=== PATIENT | female | born 1965 | race Caucasian/White ===

== ENCOUNTER 2018-11-22 07:02 | Emergency (ER) | payer BC, SELFPAY ==
[2018-11-22 07:09] VITALS: BP 214/90; PULSE 78; RESP 18; TEMP 36.4; O2SAT 98
--- NOTE | 2018-11-22 07:14 | ED.GENADUL_ITS ---
Discharge Plan Disposition Patient Disposition: HOME Condition: Stable Discharge Details Chief Complaint: Cellulitis Clinical Impression: Cellulitis of leg, right Primary Care Provider: Elkin Corrales ED Provider: Driss Perez Home Meds and New Rx's Prescriptions: New cephalexin 500 mg tablet 500 mg PO TID Qty: 21 RF: 0 No Action cephalexin 500 MG capsule 500 mg PO QID Qty: 40 RF: 0 Discharge Instructions Instructions: Cellulitis (ED) Additional Instructions: if the redness spreads up the leg, you have severe pain or fevers return to the emergency department follow up with your primary care provider in 1 week if not improving. You should also have your blood pressure rechecked in 1-2 weeks as well as it was elevated here. If you develop chest pain, severe headaches or difficulty breathing return to the emergency department Medical Decision Making Patient who denies chronic medical problems comes in with redness on lower posterior right leg. States she had some mosquito bites then the area became red. Denies fevers or severe pain and leg is not more swollen than normal or compared to the other leg. Has a 2x3cm area of erythema that is warm to touch and not tender and has no crepitus. Has full rom of the ankle and knee. Could be dermatitis but will tx as cellulitis and advised to f/u with pcp if not better and return precautions given. Pt also instructed to have BP rechecked with pcp in 1-2 weeks, has no symptoms of chest pain or sob so do not feel lab work or imaging indicated, she states it is normally elevated in provider's offices. Differential Diagnosis cellulitis, dermatitis HPI General Mode of arrival: ambulatory . Date/Time Provider Initiated Documentation: 11/22/18 07:08 . Limitations to Documentation: no limitations . Information obtained by: patient . History of Present Illness 53 year old F presents to the emergency department with the chief complaint of right leg redness, described as moderate, Quality is described as burning, Patient started experiencing this day(s) (1) and it has been constant. No relieving factors improve symptom(s), No exacerbating factors reported . Patient notes no other symptoms.. Patient did receive the following treatments prior to arrival, none Related Data Home Medications Medication Instructions Recorded Confirmed cephalexin 500 mg PO QID #40 cap 11/10/14 cephalexin 500 mg PO TID #21 tab 11/22/18 Previous Rx's Medication Instructions Recorded cephalexin 500 mg PO QID #40 cap 11/10/14 cephalexin 500 mg PO TID #21 tab 11/22/18 Allergies Allergy/AdvReac Type Severity Reaction Status Date / Time No Known Allergies Allergy Unverified 11/10/14 11:28 General Stated Complaint: Cellulitis RICHARD: 4 Review of Systems Review of Systems All systems reviewed & are unremarkable except as noted in HPI and below Constitutional Denies chills, Denies fever(s) and Denies weakness Cardiovascular Denies chest pain and Denies dyspnea Respiratory Denies dyspnea Gastrointestinal Denies abdominal pain, Denies nausea and Denies vomiting Neurologic Denies weakness PFSH Social History Smoking/Tobacco Use Status: Never Drug use: Never Exam Const General: no acute distress Orientation: alert HENMT Head: normal to inspection Ears: external ears normal General nose exam: external nose normal Mouth: moist mucous membranes Eyes General: appearance normal, both eyes and all related structures Neck Neck: normal visual inspection Resp Effort & Inspection: normal respiratory effort and able to speak in complete sentences Cardio Rate: regular rate Skin General skin exam: elasticity normal Neuro General: alert and oriented x3 Extrem General: full ROM and normal capillary refill Psych Mental Status: mental status grossly normal Course Vital Signs Temperature 36.4 C 11/22/18 07:09 Pulse 78 11/22/18 07:09 Respiratory Rate 18 11/22/18 07:09 Blood Pressure 214/90 H 11/22/18 07:09 Pulse Oximetry 98 11/22/18 07:09 Temperature 36.4 C 11/22/18 07:09 Temperature Source Temporal Artery Scan 11/22/18 07:09 Pulse 78 11/22/18 07:09 Respiratory Rate 18 11/22/18 07:09 Blood Pressure 214/90 H 11/22/18 07:09 Blood Pressure Position Sitting 11/22/18 07:09 Pulse Oximetry 98 11/22/18 07:09 Oxygen Delivery Method Room Air 11/22/18 07:09 Oxygen Flow Rate 0 11/22/18 07:09
[2018-11-22 07:24] VITALS: BP 182/87; PULSE 81; RESP 18; O2SAT 98
== END 2018-11-22 07:36 | disposition home or self-care (01) ==
LOC: ER 07:25
PROVIDERS: Emergency Provider Emergency Medicine; PCP Family Medicine
DX: L03.115 Cellulitis of right lower limb (principal); S80.861A Insect bite (nonvenomous), right lower leg, initial encounter; W57.XXXA Bitten or stung by nonvenomous insect and other nonvenomous arthropods, initial encounter
CPT/HCPCS: 99283

== ENCOUNTER 2020-03-05 11:49 | Outpatient (REF) | payer SELFPAY ==
[2020-03-06 20:51] LABS: COVID-19 RT-PCR Result NEGATIVE (Negative)
== END 2020-03-05 12:09 ==
LOC: NCHCN 11:49
PROVIDERS: Visit Provider Family Medicine
DX: Z20.828 Contact with and (suspected) exposure to other viral communicable diseases (principal)
CPT/HCPCS: U0003

== ENCOUNTER 2020-11-13 16:43 | Outpatient (REF) | payer SELFPAY ==
[2020-11-15 11:12] LABS: HBs Antibody, Quant <3.1 mIU/mL (See Note); Hepatitis B Surface Ab Negative (See Note)
== END 2020-11-13 16:44 | disposition home or self-care (01) ==
LOC: NCHCN 16:43
DX: Z11.59 Encounter for screening for other viral diseases (principal)
CPT/HCPCS: 86706